=== PATIENT | male | born 1970 | race Caucasian/White ===

== ENCOUNTER → 2021-10-29 | Day surgery (SDC) | payer MEDICAID ==
[~2021-10-29] MED LIST: Albumin 25% 12.5 GM/100 ML BAG IV ONE; Albumin 25% 12.5 GM/50 ML BAG IV ONE
[2021-10-29] MEDS: Albumin 25% 100 ML IV ONE (13:14)
== END ==
LOC: FB.SDS 11:15 → EDSTATUS 14:16
PROVIDERS: ATTEND Surgery
DX: K70.31 Alcoholic cirrhosis of liver with ascites (principal); I10 Essential (primary) hypertension; F32.A Depression, unspecified; E11.9 Type 2 diabetes mellitus without complications; K21.9 Gastro-esophageal reflux disease without esophagitis; F17.210 Nicotine dependence, cigarettes, uncomplicated; Z79.4 Long term (current) use of insulin; Z79.899 Other long term (current) drug therapy; Z79.51 Long term (current) use of inhaled steroids; Z88.8 Allergy status to other drugs, medicaments and biological substances; Z90.49 Acquired absence of other specified parts of digestive tract; Z98.890 Other specified postprocedural states
CPT/HCPCS: P9047